=== PATIENT | male | born 1970 | race Caucasian/White ===

== ENCOUNTER 2022-06-02 13:49 | Outpatient (CLI) | payer OTHER, SELFPAY ==
[2022-06-02 18:48] LABS: Basophils Absolute Auto 0.1 K/mm3 (0.0-0.1); Basophils Percent Auto 0.8 % (0.2-1.2); Eosinophils Absolute Auto 0.2 K/mm3 (0-0.3); Eosinophils Percent Auto 1.9 % (0-4.4); Hematocrit 43.4 % (42.0-52.0); Hemoglobin 14.5 g/dL (14.0-18.0); Immature Granulocyte Absolute 0.03 K/mm3 (0.00-0.031); Immature Granulocyte Percent A 0.3 % (0-0.5); Lymphocytes Absolute Auto 3.02 K/mm3 (0.9-3.2); Mean Corpuscular HGB Conc 33.4 g/dl (32-36); Mean Corpuscular Volume 89.7 fl (80-100); Mean Platelet Volume 10.4 fl (7.4-10.4); Monocytes Absolute Auto 0.6 K/mm3 (0.1-0.6); Monocytes Percent Auto 7.2 % (2.6-8.5); Neutrophils Percent Auto 55.8 % (45.5-73.1); Platelet Count Result 209 k/mm3 (150-375); Red Blood Count 4.84 M/mm3 (4.6-6.20); Red Cell Distribution Width 12.9 % (11.5-14.5); White Blood Count 8.9 K/mm3 (4.5-10.0)
[2022-06-02 19:51] LABS: Alanine Aminotransferase 52 U/L (6-50); Albumin Level 4.9 g/dL (3.5-5.1); Alkaline Phosphatase 63 U/L (38-126); Anion Gap 8 mmol/L (8-16); Aspartate Amino Transferase 57 U/L (17-59); Bilirubin,Total 1.1 mg/dL (0.2-1.3); Blood Urea Nitrogen 15 mg/dL (9-20); Calcium 9.1 mg/dL (8.4-10.2); Carbon Dioxide 25 mmol/L (22-30); Chloride 106 mmol/L (98-107); Cholesterol 261 mg/dL (0-200); Estimated Glomerular Filt Rate > 60; Glucose 96 mg/dL (65-110); HDL Direct 36 mg/dL; Sodium 139 mmol/L (137-145); Triglycerides 132 mg/dL (<150)
[2022-06-02 20:04] LABS: LDL Cholesterol Direct 180 mg/dL
[2022-06-02 20:30] LABS: Vitamin D 25 Hydroxy 26.7 ng/mL
== END 2022-06-02 13:50 | disposition home or self-care (01) ==
LOC: ANHGOSHLAB 13:51
PROVIDERS: PCP Family Medicine; Visit Provider Family Medicine
DX: E55.9 Vitamin D deficiency, unspecified (principal); Z00.00 Encounter for general adult medical examination without abnormal findings; I10 Essential (primary) hypertension; Z13.220 Encounter for screening for lipoid disorders; E53.8 Deficiency of other specified B group vitamins; R20.0 Anesthesia of skin; R20.2 Paresthesia of skin
CPT/HCPCS: 36415; 80053; 80061; 82306; 82607; 84443; 85025

== ENCOUNTER 2022-07-28 00:44 | Day surgery (SDC) | payer OTHER, SELFPAY ==
[2022-07-12 14:09] VITALS: BMI 43.3
[2022-07-28 09:30] VITALS: BP 156/91; PULSE 94; RESP 20; TEMP 36.2; O2SAT 99; BMI 42.5
[2022-07-28] MEDS: LACTATED RINGERS 1,000 ML 150 ML IV CONT (09:30)
--- NOTE | 2022-07-28 10:01 | PM.HPGS ---
History of Present Illness History of Present Illness Consent: Risks, benefits, and alternatives have been discussed and questions answered. Patient agrees to proceed with procedure. Chief complaint: neoplasm screening Narrative: Xavier Mckay is a 52 year old male here for first screening colonoscopy Review of Systems Constitutional: Constitutional: Denies headache(s) and Denies weakness Eyes: Eyes: Denies blurry vision ENT: Reports Normal hearing present, Denies headache(s) and Denies neck pain Cardiovascular: Cardiovascular: Denies chest pain and Denies dyspnea Respiratory: Respiratory: Denies dyspnea Gastrointestinal: Gastrointestinal: Reports no additional gastrointestinal complaints Genitourinary: Genitourinary: Denies dysuria Musculoskeletal: Musculoskeletal: Denies neck pain Integumentary/Breasts: Skin/Breast: Denies dry skin Neurologic: Reports Normal hearing present, Denies headache(s) and Denies weakness Psychiatric: Psychiatric: Denies anxiety Endocrine: Endocrine: Denies change in body appearance Hematologic/Lymphatic: Hematologic/Lymphatic: Denies easy bleeding Allergic/Immunologic: Allergic/Immunologic: Denies urticaria PMF Past Medical History Medical History (Updated 07/28/22 @ 10:02 by Yfn Amin MD) Actinic keratosis Colon cancer screening Dyslipidemia Essential (primary) hypertension Kidney stones Vitamin B12 deficiency Vitamin D deficiency Surgical History Surgical History H/O thumb surgery (~1986) left thumb due trauma. Social History Social History Smoking status: Never smoker Alcohol intake: current Substance use: never Substance use type: does not use Lack of Transportation: No Lack of Food: Never True Current Housing: I Have Housing Concerned About Future Housing: No Difficulty Paying Gas/Electric Bills: No Difficulty Paying for Meds: No Currently Unemployed: No Education: Bachelor's Degree Difficulty w/ Childcare or Family Care: No Living arrangements: with family Additional living arrangements comments: Occupation/Education: occupation Additional occupation/education comments: [employer] Gender identity (if verbalized by the patient): Male Sexual Orientation (if Verbalized by the Patient): Straight or Heterosexual Spiritual care concerns: No Meds Home Medications and Allergies Home Medications Medication Instructions Recorded Confirmed Type amlodipine 10 mg tablet 10 mg PO DAILY #90 tabs 05/19/22 07/12/22 Rx atorvastatin 20 mg tablet (Lipitor) 20 mg PO QHS #90 tabs 06/03/22 07/12/22 Rx cholecalciferol (vitamin D3) 50 50 mcg PO DAILY #90 tabs 06/03/22 07/12/22 Rx mcg (2,000 unit) tablet cyanocobalamin (vitamin B-12) 1,000 mcg sublingual DAILY #90 tabs 06/03/22 07/12/22 Rx 1,000 mcg sublingual tablet hydrochlorothiazide 25 mg tablet 25 mg PO DAILY #90 tabs 06/03/22 07/12/22 Rx metoprolol succinate 25 mg 25 mg PO DAILY #90 tabs 06/24/22 07/12/22 Rx tablet,extended release 24 hr Allergies Allergy/AdvReac Type Severity Reaction Status Date / Time No Known Allergies Allergy Verified 07/28/22 09:29 Vital Signs Vital Signs - 24 hr 07/28/22 09:30 Temperature 97.2 F L Pulse Rate 94 Respiratory Rate 20 Blood Pressure 156/91 H Pulse Oximetry 99 Oxygen Delivery Room Air Exam Const: General: comfortable and no acute distress HENMT: Face/Nose/Sinus: Normal nares present Eyes: General: appearance normal, both eyes and all related structures Neck: Neck: no JVD Resp: Auscultation: clear to auscultation bilaterally Cardio: Rate: regular rate Rhythm: regular rhythm GI: Inspection: non-distended GI Palp: Yes Soft to palpation Skin: General skin exam: normal color Neuro: General: gait normal Speech: normal speech Extrem: General: normal t
--- NOTE | 2022-07-28 10:08 | WPDANESEPPF ---
Anes - Initial Pre Proc Eval Procedure: Operation Date: 07/28/22 10:30 Proposed Procedures p Screening Colonoscopy - Yfn Amin MD Date/Time: 07/28/22 10:08 Surgeon: Yfn Amin MD Pre Op Diagnosis: neoplasm screening Patient Data Age: 52 Gender: M Height: 1.73 m Weight: 127.1 kg Last Vital Signs Temp 97.2 F L 07/28/22 09:30 Pulse 94 07/28/22 09:30 Resp 20 07/28/22 09:30 BP 156/91 H 07/28/22 09:30 Pulse Ox 99 07/28/22 09:30 O2 Del Method Room Air 07/28/22 09:30 Allergies Allergy/AdvReac Type Severity Reaction Status Date / Time No Known Allergies Allergy Verified 07/28/22 09:29 Home Medications Medication Instructions Recorded Confirmed Type amlodipine 10 mg tablet 10 mg PO DAILY #90 tabs 05/19/22 07/12/22 Rx atorvastatin 20 mg tablet (Lipitor) 20 mg PO QHS #90 tabs 06/03/22 07/12/22 Rx cholecalciferol (vitamin D3) 50 50 mcg PO DAILY #90 tabs 06/03/22 07/12/22 Rx mcg (2,000 unit) tablet cyanocobalamin (vitamin B-12) 1,000 mcg sublingual DAILY #90 tabs 06/03/22 07/12/22 Rx 1,000 mcg sublingual tablet hydrochlorothiazide 25 mg tablet 25 mg PO DAILY #90 tabs 06/03/22 07/12/22 Rx metoprolol succinate 25 mg 25 mg PO DAILY #90 tabs 06/24/22 07/12/22 Rx tablet,extended release 24 hr Patient hx anesthesia problems: none Family hx anesthesia problems: none Results Review: All pre-operative results and documents have been reviewed as part of the pre-operative evaluation. [facility] Past Medical History Medical History (Updated 07/28/22 @ 10:02 by Yfn Amin MD) Actinic keratosis Colon cancer screening Dyslipidemia Essential (primary) hypertension Kidney stones Vitamin B12 deficiency Vitamin D deficiency Surgical History Surgical History H/O thumb surgery (~1986) left thumb due trauma. Social History Social History Smoking status: Never smoker Alcohol intake: current Substance use: never Substance use type: does not use Lack of Transportation: No Lack of Food: Never True Current Housing: I Have Housing Concerned About Future Housing: No Difficulty Paying Gas/Electric Bills: No Difficulty Paying for Meds: No Currently Unemployed: No Education: Bachelor's Degree Difficulty w/ Childcare or Family Care: No Living arrangements: with family Additional living arrangements comments: Occupation/Education: occupation Additional occupation/education comments: [employer] Gender identity (if verbalized by the patient): Male Sexual Orientation (if Verbalized by the Patient): Straight or Heterosexual Spiritual care concerns: No Anes - Eval Final PreProcedure Day of Procedure 07/28/22 10:08 Patient weight: morbidly obese Heart: regular rate and rhythm Lungs: clear to auscultation Airway: Mallampati scale class III Neurological: alert and oriented Last oral intake: >/= 8 hours ASA classification: III Emergent: no Anesthetic plan: proceed Anesthesia type and monitoring: general GIVS and standard monitoring Results Review: All pre-operative results and documents have been reviewed as part of the pre-operative evaluation. Informed Consent: The patient's anesthetic plan and its attendant risks and benefits were discussed with the patient/family/POA. Questions were solicited and answers provided to the satisfaction of the patient/family/POA.
[2022-07-28 10:22] VITALS: BP 119/79; PULSE 86; RESP 22; O2SAT 97
[2022-07-28 10:32] VITALS: BP 125/87; PULSE 88; RESP 21; O2SAT 97
[2022-07-28 10:42] VITALS: BP 131/84; PULSE 71; RESP 21; O2SAT 99
== END 2022-07-28 10:52 | disposition home or self-care (01) ==
PROVIDERS: PCP Family Medicine; Visit Provider Internal Medicine Gastroenterology
PROC: 0DJD8ZZ Inspection of Lower Intestinal Tract, Via Natural or Artificial Opening Endoscopic (ICD-10-PCS; CPT 45378; principal; 2022-07-28 10:30)
DX: Z12.11 Encounter for screening for malignant neoplasm of colon (principal); K64.8 Other hemorrhoids; I10 Essential (primary) hypertension; E78.5 Hyperlipidemia, unspecified; E55.9 Vitamin D deficiency, unspecified; E53.8 Deficiency of other specified B group vitamins; E66.01 Morbid (severe) obesity due to excess calories; Z68.41 Body mass index [BMI] 40.0-44.9, adult
CPT/HCPCS: 45378; J2704; J7120

== ENCOUNTER 2022-08-17 08:30 | Outpatient (CLI) | payer OTHER, SELFPAY ==
--- NOTE | 2022-08-17 11:00 | NEURO_ITS ---
Impression: # Complains of increasing nocturnal paresthesia and pain in hands. # Severe bilateral Carpal Tunnel Syndrome. # No ulnar neuropathy. # Abnormal needle/EMG exam. Motor Nerve Conduction Upper Extremities Median Nerve Conduction Velocity (m/sec) Terminal Latency (msec) Response Voltage(mV) Elbow-Wrist Wrist Elbow Wrist Right 54 11.9 2 3 Left 60 11.2 1 1 Ulnar Nerve Conduction Velocity (m/sec) Terminal Latency (msec) Response Voltage(mV) Above Elbow Below Elbow Wrist Above Elbow Below Elbow Wrist Right 54 2.3 6 7 Left 57 2.7 7 8 F-Wave Latency Median (ms) Ulnar (ms) Right 30.0 28.3 Left 30.0 28.2 Sensory Nerve Conduction Upper Extremities Median Nerve Stimulation Terminal Latency (msec) Wrist/Digit Response Voltage (uV) Wrist Right NR/NR NR/NR Left NR/NR NR/NR Ulnar Nerve Stimulation Terminal Latency (msec) Wrist/Digit Response Voltage (uV) Wrist Right 2.4 22 Left 2.5 54 Radial Nerve Terminal Latency (msec) Response Voltage(mV) Right 2.0 23 Left 2.5 17 Left Right Muscles Examined Fibrillation Fasciculation Scarcity Voltage Duration Left Right Left Right Left Right Left Right Left Right Deltoid Biceps X X Brachioradialis Triceps X X Pronator Teres Reduced Reduced >12ms >12ms X X Ext Indicis X X Ext Digitorum X X Abd Poll Brev Reduced Reduced >12ms >12ms X X 1st Dorsal Interosseus Paraspinals MTDD
== END 2022-08-17 08:31 | disposition home or self-care (01) ==
LOC: ANHNEURO 08:32
PROVIDERS: PCP Family Medicine; Visit Provider Family Medicine
DX: R20.0 Anesthesia of skin (principal); G56.03 Carpal tunnel syndrome, bilateral upper limbs
CPT/HCPCS: 95886; 95911

== ENCOUNTER 2022-09-18 14:37 | Emergency (ER) | payer OTHER, SELFPAY ==
--- NOTE | 2022-09-18 14:40 | ED.BACK ---
HPI - Back Pain/Injury General Chief Complaint: Urogenital-Male Stated Complaint: kidney pain Source: patient and RN notes reviewed History of Present Illness HPI Narrative: 52 yo M presents to urgent care with at side. Pt states he suddenly came down with left mid back pain yesterday afternoon. Pt denies any injury to explain it. Pt denies pain radiating anywhere, including flank, abdomen, buttocks, or leg. Denies any hematuria, dysuria, vomiting, fevers, or chills. Pt does report some nausea. Reports a hx of kidney stones. Pt took (2) Advil this am without relief. Related Data Allergies Allergy/AdvReac Type Severity Reaction Status Date / Time No Known Allergies Allergy Verified 09/18/22 14:45 Review of Systems Review of Systems: Pertinent positives and pertinent negatives per HPI. [facility] Past Medical History Medical History (Updated 09/18/22 @ 15:12 by Sri Nielson, REGINO) Actinic keratosis Colon cancer screening Dyslipidemia Essential (primary) hypertension Kidney stones Vitamin B12 deficiency Vitamin D deficiency Surgical History Surgical History H/O thumb surgery (~1986) left thumb due trauma. Social History Social History Smoking status: Never smoker Alcohol intake: current Substance use: never Substance use type: does not use Lack of Transportation: No Lack of Food: Never True Current Housing: I Have Housing Concerned About Future Housing: No Difficulty Paying Gas/Electric Bills: No Difficulty Paying for Meds: No Currently Unemployed: No Education: Bachelor's Degree Difficulty w/ Childcare or Family Care: No Living arrangements: with family Additional living arrangements comments: Occupation/Education: occupation Additional occupation/education comments: [employer] Gender identity (if verbalized by the patient): Male Sexual Orientation (if Verbalized by the Patient): Straight or Heterosexual Spiritual care concerns: No Comments At the time of my signature, I reviewed and agree with the nursing past medical, surgical, social, and family history. There is no relevant family history pertinent to the patient complaint. Exam Narrative: GENERAL: This is a well-nourished, well-developed patient, in no apparent distress. HEAD: normocephalic, atraumatic. EYES: PERRL. Sclera clear/white. Vision is grossly intact. EARS: External ears normal, auditory canals clear and without drainage, TMs normal without perforation. Hearing grossly intact. NOSE: External nose normal with no obvious nasal discharge, nares without redness, no rhinorrhea. THROAT: Mucous membranes moist, posterior pharynx clear. NECK: Neck supple, non-tender without lymphadenopathy, masses or thyromegaly. CARDIOVASCULAR: Regular rate RESPIRATORY: No respiratory distress. GASTROINTESTINAL: Abdomen soft, non-tender, nondistended. Bowel sounds are active. No hepato-splenomegaly, or palpable masses. No guarding. SKIN: warm, intact with no suspicious lesions or rash, good texture and turgor. NEURO: awake, alert, and oriented to person, place and time. There were no obvious focal neurologic abnormalities. EXTREMITIES: No clubbing, cyanosis, or edema. No joint tenderness, effusion, or edema noted. BACK: Tenderness to left mid back. It appears pt's pain increased with any movement by pt. Course Course Level of Care: Express Care Visit Vital Signs Vital signs: Vital Signs Temperature 98.4 F 09/18/22 14:47 Pulse Rate 87 09/18/22 14:47 Respiratory Rate 16 09/18/22 14:47 Blood Pressure 142/95 H 09/18/22 14:47 Pulse Oximetry 98 09/18/22 14:47 Temperature 98.4 F 09/18/22 14:47 Pulse Rate 87 09/18/22 14:47 Respiratory Rate 16 09/18/22 14:47 Blood Pressure 142/95 H 09/18/22 14:47 Pulse Oximetry 98 09/18/22 14:47 reviewed MDM - Back Pain/Injury
[2022-09-18 14:47] VITALS: BP 142/95; PULSE 87; RESP 16; TEMP 36.9; O2SAT 98
[2022-09-18] MEDS: KETOROLAC 30 MG/ML VIAL (*BKC) IM (15:15)
== END 2022-09-18 15:45 | disposition home or self-care (01) ==
PROVIDERS: Emergency Provider Nurse Practitioner Family; PCP Family Medicine
DX: M54.6 Pain in thoracic spine (principal); R31.9 Hematuria, unspecified; E78.5 Hyperlipidemia, unspecified; I10 Essential (primary) hypertension; E55.9 Vitamin D deficiency, unspecified; E53.8 Deficiency of other specified B group vitamins
CPT/HCPCS: 81003; 96372; 99213; G0463; J1885

== ENCOUNTER 2022-09-20 15:48 | Outpatient (CLI) | payer OTHER, SELFPAY ==
--- NOTE | ~2022-09-20 | CT_ITS ---
EXAMINATION: CT abdomen pelvis wo con DATE: 09/20/2022 16:16 INDICATION: Left flank pain TECHNIQUE: Computed tomography (CT) of the abdomen and pelvis was performed without intravenous contr ast. The dose-length product (DLP) was 1758.98 mGy-cm. Automated exposure control and iterative recon struction technique were employed. COMPARISON: None FINDINGS: The lung bases are clear. The heart size is normal. The liver, spleen, pancreas, gallbladde r, and adrenal glands are normal. There is a 3 mm nonobstructing stone of the left kidney lower pole. There are two nonobstructing stones of the right kidney measuring 2 mm. No stones are present in the ureters or bladder. There is no hydronephrosis or hydroureter. No pathologically enlarged abdominal or pelvic lymph nodes are identified. No free intraperitoneal gas or evidence of bowel obstruction. T here is severe lumbar spondylosis at L5-S1. IMPRESSION: 1. No CT correlate for the patient's symptoms. 2. Bilateral nonobstructing nephrolithiasis. Reviewed, dictated and finalized at location F.
--- NOTE | ~2022-09-20 | XR_ITS ---
EXAMINATION: XR abdomen/kub 1V INDICATION: Left flank pain TECHNIQUE: Supine views of the abdomen were obtained on 2 radiographs. COMPARISON: CT from today FINDINGS: There is a 4 mm nonobstructing stone of the left kidney lower pole. Right-sided kidney ston es identified on the comparison CT are not definitely seen. The bowel gas pattern is normal. IMPRESSION: 1. Left nephrolithiasis. Reviewed, dictated and finalized at location F. IMPRESSION: 1. Left nephrolithiasis.
== END 2022-09-20 15:49 | disposition home or self-care (01) ==
LOC: ANHIMG 15:55
PROVIDERS: PCP Family Medicine; Visit Provider Urology
DX: R10.9 Unspecified abdominal pain (principal); N20.0 Calculus of kidney
CPT/HCPCS: 74018; 74176

== ENCOUNTER 2022-10-14 10:14 | Outpatient (CLI) | payer OTHER, SELFPAY ==
[2022-10-14 13:07] LABS: Basophils Percent Auto 0.3 % (0.2-1.2); Eosinophils Absolute Auto 0.3 K/mm3 (0-0.3); Eosinophils Percent Auto 2.8 % (0-4.4); Hematocrit 40.9 % (42.0-52.0); Hemoglobin 13.8 g/dL (14.0-18.0); Immature Granulocyte Absolute 0.05 K/mm3 (0.00-0.031); Immature Granulocyte Percent A 0.5 % (0-0.5); Lymphocytes Absolute Auto 2.75 K/mm3 (0.9-3.2); Lymphocytes Percent Auto 27.6 % (18.3-44.2); Mean Corpuscular HGB Conc 33.7 g/dl (32-36); Mean Corpuscular Hemoglobin 29.8 pg (26-34); Mean Corpuscular Volume 88.3 fl (80-100); Mean Platelet Volume 10.5 fl (7.4-10.4); Monocytes Absolute Auto 0.9 K/mm3 (0.1-0.6); Monocytes Percent Auto 9.4 % (2.6-8.5); Neutrophils Absolute Auto 5.9 K/mm3 (1.3-6.7); Neutrophils Percent Auto 59.4 % (45.5-73.1); Platelet Count Result 243 k/mm3 (150-375); Red Blood Count 4.63 M/mm3 (4.6-6.20); Red Cell Distribution Width 13.1 % (11.5-14.5)
[2022-10-14 13:16] LABS: Alanine Aminotransferase 29 U/L (6-50); Albumin Level 4.4 g/dL (3.5-5.1); Alkaline Phosphatase 72 U/L (38-126); Anion Gap 9 mmol/L (8-16); Aspartate Amino Transferase 27 U/L (17-59); Bilirubin,Total 0.6 mg/dL (0.2-1.3); Blood Urea Nitrogen 16 mg/dL (9-20); Calcium 8.7 mg/dL (8.4-10.2); Carbon Dioxide 25 mmol/L (22-30); Chloride 105 mmol/L (98-107); Cholesterol 133 mg/dL (0-200); Estimated Glomerular Filt Rate > 60; Glucose 109 mg/dL (65-110); HDL Direct 33 mg/dL; Potassium 3.7 mmol/L (3.4-5.0); Sodium 139 mmol/L (137-145); Triglycerides 105 mg/dL (<150)
[2022-10-14 13:28] LABS: LDL Cholesterol Direct 77 mg/dL
== END 2022-10-14 10:15 | disposition home or self-care (01) ==
LOC: ANHGOSHLAB 10:15
PROVIDERS: PCP Family Medicine; Visit Provider Family Medicine
DX: E78.5 Hyperlipidemia, unspecified (principal); D69.2 Other nonthrombocytopenic purpura; I10 Essential (primary) hypertension; Z79.899 Other long term (current) drug therapy
CPT/HCPCS: 36415; 80053; 80061; 85025

== ENCOUNTER 2022-11-09 15:30 | Outpatient (RCR) | payer OTHER, SELFPAY ==
--- NOTE | 2022-10-12 17:05 | PTOPEVAL1 ---
Assessment and note entered by Sena Perdomo, PT, DPT Evaluation Information Assessment Status Evaluation Diagnosis back pain Onset 2-3 weeks Subjective Information Pt states he went to urgent care a few weeks ago thinking he had a kidney stone. He said at that time every step he took was excruciating. A few days later they confirmed that he had kidney stones but without a blockage so shoulder not be the cause of his pain. He states the following day he was on heavy pain meds and a muscle relaxer and took a few days to recover he states the worst of his pain started to go away. He states now he is okay most of the day and once he gets home and starts to relax his back will start to tighten up. He states the same day as his back pain he also had L heel pain. Reported Pain Level Pain Score 2: Self Report Assessment PT Clinical Summary Xavier presents to therapy today for his initial evaluation with a diagnosis of thoracic spine pain . Today he demonstrates decreased lateral flexion and decreased rotation of his back but is limited by pain and mobility. He demonstrates tenderness and increased tissue density throughout his paraspinal and quadratus lumborum. Skilled physical therapy services are indicated to improve spinal mobility, to manage pain, to educate on body mechanics, and to progress towards a return to baseline function. Plan of Care Interventions Electrical Stimulation,Gait Training,Hot Pack/Cold Pack,Manual Therapy,Neuro Re-education,Patient/ Caregiver Educati,Therapeutic Activities, Therapeutic Exercise PT Services Indicated Yes Treatment Frequency and 2x/wk for 4 wks Duration These treatments will address the objective and functional deficits as defined above. The patient will be advanced safely and appropriately in order for the patient to progress towards his/her prior level of function. Additional exercises will be introduced and as well as a comprehensive home exercise program upon discharge, if needed, ?to ensure carryover of functional gains achieved in the clinic. This treatment plan has been reviewed and agreement upon by the patient.
--- NOTE | 2022-11-09 16:19 | PTOPDC ---
Assessment and note entered by Sena Perdomo, PT, DPT Evaluation Information Assessment Status discharge Diagnosis back pain Onset 2-3 weeks Subjective Information Pt states his back feels like it is getting better , much better. He declines any sharp pains and minimal lower back pain. He states he did some yard work on the weekend and he got some upper/mid back muscle spasms that went away and then tightness after that. He reports his muscle spasms have decreased significantly. He states he has become way more awareness of his body mechanics and how he does his work. Pt reports 115% in his symptoms, he states he feels better than before his injury. Reported Pain Level Pain Score 0: Self Report Assessment PT Clinical Summary Xavier presents to therapy today for his progress report following 7 visits of skilled therapy to treat his diagnosis of back pain. Today he demonstrates lumbar and thoracic ROM with is WNL and pain free. He demonstrates great LE strength, good body awareness, and improved functional mobility. He has met all of his therapy goals at this time and no longer requires skilled services. He will be discharged at this time. Plan of Care PT Services Indicated No
== END 2022-11-10 13:28 | disposition home or self-care (01) ==
LOC: ANHGOSHPT 15:30
PROVIDERS: PCP Family Medicine; Visit Provider Nurse Practitioner
DX: M54.6 Pain in thoracic spine (principal)
CPT/HCPCS: 97014; 97110; 97140; 97161; 97530; G0283

== ENCOUNTER 2023-01-15 11:15 | Emergency (ER) | payer OTHER, SELFPAY ==
[2023-01-15 11:22] VITALS: BP 124/89; PULSE 82; RESP 16; TEMP 36.8; O2SAT 99
--- NOTE | 2023-01-15 11:39 | ED.SKABFB ---
HPI - Skin/Abscess/Foreign Bdy General Chief complaint: Skin/Abscess/Foreign Body Stated complaint: rash Time Seen by Provider: 01/15/23 11:34 Source: patient and RN notes reviewed Mode of arrival: ambulatory Limitations: no limitations History of Present Illness HPI narrative: 52 year old male presents with concern for race red itchy rash. He reports rash started on his right forearm yesterday. Reports that spread up his arm and now to his scalp. He reports his eyes discharging the feel itchy. He had carpal tunnel surgery on his right wrist early this week. He had had a cotton dressing and an Vijay wrap up to his mid wrist. He is not taking any antibiotics currently. He did get prescribed pain medication which he has taken only a few tablets of. He denies any new lotions, soaps, personal care products. He denies history of similar rash in the past. Denies swollen lips, swollen tongue, trouble breathing. complaint: rash Related Data Allergies Allergy/AdvReac Type Severity Reaction Status Date / Time No Known Allergies Allergy Verified 01/15/23 11:32 Review of Systems Review of Systems: CONSTITUTIONAL: Denies malaise, chills, sweats, or fever. EYES: Denies redness, or discharge. ENT: Denies rhinorrhea, congestion, swollen lips, swollen tongue CARDIOVASCULAR: Denies chest pain, palpitations, or edema. RESPIRATORY: Denies cough or dyspnea. GASTROINTESTINAL: Denies abdominal pain, nausea, vomiting SKIN: Reports itchy rash on his right arm, scalp, face MUSCULOSKELETAL: Denies joint pain or myalgia. NEUROLOGIC: Denies headache. All systems reviewed & are unremarkable except as noted in HPI and below PMFSH Past Medical History Medical History Actinic keratosis Colon cancer screening Dyslipidemia Essential (primary) hypertension Kidney stones Vitamin B12 deficiency Vitamin D deficiency Surgical History Surgical History H/O thumb surgery (~1986) left thumb due trauma. Social History Social History Smoking status: Never smoker Alcohol intake: current Substance use: never Substance use type: does not use Lack of Transportation: No Lack of Food: Never True Current Housing: I Have Housing Concerned About Future Housing: No Difficulty Paying Gas/Electric Bills: No Difficulty Paying for Meds: No Currently Unemployed: No Education: Bachelor's Degree Difficulty w/ Childcare or Family Care: No Living arrangements: with family Additional living arrangements comments: Occupation/Education: occupation Additional occupation/education comments: [employer] Gender identity (if verbalized by the patient): Male Sexual Orientation (if Verbalized by the Patient): Straight or Heterosexual Spiritual care concerns: No Comments At time of signature, agree with nursing past medical, surgical, social and family history. There is no relevant family history pertinent to the presenting complaint Exam Narrative: GENERAL: Well-appearing, well-nourished, and in no acute distress. HEAD: Normocephalic, atraumatic. EYES: PERRLA, conjunctivae clear, and EOMI. ENT: Mucous membranes moist. Oropharynx without edema, erythema or lesions. NECK: Supple. No lymphadenopathy CHEST: Clear to auscultation. No respiratory distress. HEART: Regular rate and rhythm. SKIN: Warm, dry. Irregular erythematous papular rash noted on the right forearm, above the elbow, scalp, mild erythema noted around the eyes NEURO: Alert and oriented x3. PSYCH: Normal mood and affect Course Course Emergency Course: Patient is aware of diagnosis, understands and agrees to treatment plan. Anticipatory guidance given. Patient agrees to follow-up as directed and is aware of reasons to seek care at the emergency department. Portions of this record may hav
== END 2023-01-15 11:45 | disposition home or self-care (01) ==
PROVIDERS: Emergency Provider Nurse Practitioner; PCP Family Medicine
DX: L30.9 Dermatitis, unspecified (principal); E78.5 Hyperlipidemia, unspecified; I10 Essential (primary) hypertension; E53.8 Deficiency of other specified B group vitamins; E55.9 Vitamin D deficiency, unspecified
CPT/HCPCS: 99213; G0463

== ENCOUNTER 2023-06-30 08:48 | Outpatient (CLI) | payer OTHER, SELFPAY ==
[2023-06-30 18:47] LABS: Basophils Absolute Auto 0.1 K/mm3 (0.0-0.1); Basophils Percent Auto 0.9 % (0.2-1.2); Eosinophils Absolute Auto 0.3 K/mm3 (0-0.3); Eosinophils Percent Auto 3.8 % (0-4.4); Hematocrit 46.1 % (42.0-52.0); Hemoglobin 14.6 g/dL (14.0-18.0); Immature Granulocyte Absolute 0.05 K/mm3 (0.00-0.031); Immature Granulocyte Percent A 0.7 % (0-0.5); Lymphocytes Absolute Auto 2.63 K/mm3 (0.9-3.2); Lymphocytes Percent Auto 34.2 % (18.3-44.2); Mean Corpuscular HGB Conc 31.7 g/dl (32-36); Mean Corpuscular Hemoglobin 28.9 pg (26-34); Mean Corpuscular Volume 91.1 fl (80-100); Mean Platelet Volume 10.5 fl (7.4-10.4); Monocytes Absolute Auto 0.5 K/mm3 (0.1-0.6); Monocytes Percent Auto 6.4 % (2.6-8.5); Neutrophils Absolute Auto 4.2 K/mm3 (1.3-6.7); Platelet Count Result 226 k/mm3 (150-375); Red Blood Count 5.06 M/mm3 (4.6-6.20); Red Cell Distribution Width 14.1 % (11.5-14.5); White Blood Count 7.7 K/mm3 (4.5-10.0)
[2023-06-30 20:27] LABS: Alanine Aminotransferase 43 U/L (6-50); Albumin Level 4.5 g/dL (3.5-5.1); Alkaline Phosphatase 72 U/L (38-126); Anion Gap 12 mmol/L (8-16); Aspartate Amino Transferase 40 U/L (17-59); Bilirubin,Total 0.9 mg/dL (0.2-1.3); Blood Urea Nitrogen 12 mg/dL (9-20); Calcium 9.2 mg/dL (8.4-10.2); Carbon Dioxide 27 mmol/L (22-30); Chloride 103 mmol/L (98-107); Cholesterol 167 mg/dL (0-200); Estimated Glomerular Filt Rate > 60; Glucose 93 mg/dL (65-110); HDL Direct 37 mg/dL; Potassium 3.9 mmol/L (3.4-5.0); Sodium 142 mmol/L (137-145); Triglycerides 101 mg/dL (<150)
[2023-06-30 20:38] LABS: LDL Cholesterol Direct 106 mg/dL
[2023-06-30 20:56] LABS: Prostate Specific Antigen 1.4 ng/mL (< OR = 4.0)
[2023-06-30 21:21] LABS: Vitamin B12 > 1000.0 pg/mL (239-931)
[2023-06-30 21:55] LABS: Vitamin D 25 Hydroxy 41.3 ng/mL
[2023-06-30 22:17] LABS: Hemoglobin A1C 5.6 % (<5.7)
== END 2023-06-30 08:49 | disposition home or self-care (01) ==
LOC: ANHGOSHLAB 08:49
PROVIDERS: PCP Family Medicine; Visit Provider Family Medicine
DX: Z00.00 Encounter for general adult medical examination without abnormal findings (principal); E78.5 Hyperlipidemia, unspecified; E53.8 Deficiency of other specified B group vitamins; R73.9 Hyperglycemia, unspecified; E55.9 Vitamin D deficiency, unspecified; I10 Essential (primary) hypertension; Z12.5 Encounter for screening for malignant neoplasm of prostate; Z79.899 Other long term (current) drug therapy
CPT/HCPCS: 36415; 80053; 80061; 82306; 82607; 83036; 84153; 84443; 85025; G0103

== ENCOUNTER 2024-07-19 08:14 | Outpatient (CLI) | payer OTHER, SELFPAY ==
[2024-07-19 18:28] LABS: Basophils Absolute Auto 0.1 K/mm3 (0.0-0.1); Basophils Percent Auto 0.8 % (0.2-1.2); Eosinophils Absolute Auto 0.3 K/mm3 (0-0.3); Eosinophils Percent Auto 3.3 % (0-4.4); Hematocrit 46.7 % (42.0-52.0); Hemoglobin 15.5 g/dL (14.0-18.0); Immature Granulocyte Absolute 0.01 K/mm3 (0.00-0.031); Immature Granulocyte Percent A 0.1 % (0-0.5); Lymphocytes Absolute Auto 2.92 K/mm3 (0.9-3.2); Lymphocytes Percent Auto 38.3 % (18.3-44.2); Mean Corpuscular HGB Conc 33.2 g/dl (32-36); Mean Corpuscular Hemoglobin 30.1 pg (26-34); Mean Corpuscular Volume 90.7 fl (80-100); Mean Platelet Volume 10.7 fl (7.4-10.4); Monocytes Absolute Auto 0.7 K/mm3 (0.1-0.6); Monocytes Percent Auto 8.7 % (2.6-8.5); Neutrophils Absolute Auto 3.7 K/mm3 (1.3-6.7); Neutrophils Percent Auto 48.8 % (45.5-73.1); Platelet Count Result 228 k/mm3 (150-375); Red Blood Count 5.15 M/mm3 (4.6-6.20); White Blood Count 7.6 K/mm3 (4.5-10.0)
[2024-07-19 19:28] LABS: Sodium 138 mmol/L (137-145)
[2024-07-19 19:32] LABS: Alanine Aminotransferase 62 U/L (6-50); Albumin Level 4.5 g/dL (3.5-5.1); Alkaline Phosphatase 63 U/L (38-126); Anion Gap 9 mmol/L (4-12); Aspartate Amino Transferase 59 U/L (17-59); Bilirubin,Total 1.2 mg/dL (0.2-1.3); Blood Urea Nitrogen 14 mg/dL (9-20); Calcium 9.4 mg/dL (8.4-10.2); Carbon Dioxide 28 mmol/L (22-30); Chloride 101 mmol/L (98-107); Cholesterol 126 mg/dL (0-200); Estimated Glomerular Filt Rate > 60; Glucose 98 mg/dL (65-110); HDL Direct 31 mg/dL; Potassium 4.1 mmol/L (3.4-5.0); Triglycerides 76 mg/dL (<150)
[2024-07-19 19:40] LABS: LDL Cholesterol Direct 82 mg/dL
[2024-07-19 19:49] LABS: Hemoglobin A1C 5.5 % (<5.7)
[2024-07-19 19:55] LABS: Vitamin D 25 Hydroxy 55.2 ng/mL
[2024-07-19 20:00] LABS: Prostate Specific Antigen 1.2 ng/mL (< OR = 4.0)
[2024-07-19 20:28] LABS: Vitamin B12 > 1000.0 pg/mL (239-931)
--- OUTSIDE RECORDS SUMMARY | 2024-07-20 03:53 | XMS_ITS | Data Portability ---
Author Organization [place] [facility], Main Office Address [address] [place] [address] Care Team Providers Care Principle Software Engineer Name Role Phone MONO ARAUJO Primary Care Provider MONO ARAUJO Referring Provider [phone] Assessment Encounter Date Assessment Date Assessment LastModified by Organization Details LastModified Time 01/26/2023 01/26/2023 [age] male presents for follow-up of his right wrist postop care, and also evaluation of a separate problem with his left hand and wrist. He is status post carpal tunnel release on 01/11/2023. Overall he is doing well. He reports that his numbness and tingling symptoms have improved. He has minimal pain, rated as 2/10, he is not taking any pain medications. Overall he is satisfied with his outcome and eager to get his other side done. He has left-sided carpal tunnel as well, also causing numbness and tingling and pain at night which he has to shake out. He has previously had conservative management including activity modification, therapy, anti-inflammatorie s, and bracing. he also reports pain and locking of his middle and ring fingers, which also have not improved with anti-inflammatorie s and therapy exercises. And is wondering if that can be taken care of along with his carpal tunnel. Right wrist incision Is healing well without erythema drainage or other signs of infection. Sutures removed. He has no tenderness around the surgical site. Negative Tinel's. Sensation intact to light touch throughout all the fingers. On his left side, he has diminished sensation over the median nerve distribution. Positive Tinel's and Phalen's. He also has tenderness over the middle and ring finger pulleys. He has pain with full extension of the fingers, and he does have catching when bringing his fingers from a flexed into extended position. He is progressing well from his right carpal tunnel release. He wants to get scheduled for his left side as well. We discussed that for his trigger fingers, we could either progress with continued conservative management, performed a cortisone injection, or another option would be surgical release. Although he has not had any cortisone injections, he wants to get them taken care of definitively well he is getting surgery for his carpal tunnel. Risks, benefits, and alternatives to surgery were discussed with the patient. Risks include but are not limited to pain, stiffness, infection, bleeding, blood clot, injury to other structures including nerves or blood vessels, need for future surgery, and anesthesia risks. We discussed the goal of surgery is to improve symptoms but there is no guarantee of improvement and it is possible the patient's condition is worse after surgery. Patient agreed and would like to proceed. [email or web address] Not available 01/26/2023 21:44:30 03/09/2023 03/09/2023 53-year-old patient presents today for 1st postop follow-up for left carpal tunnel release and left middle and ring finger trigger finger release. He says he feels okay overall. He has some pain and swelling in his fingers that makes it difficult for him to make a fist. He states that the carpal tunnel incision is not causing him any discomfort. He rates his pain a 5/10. He is no longer on pain medications. He also states he is having pain in bilateral wrists. Physical exam: Incisions are clean dry and intact without any signs of infection. Sutures were removed. Tenderness around incision sites. Some swelling still in the hand and fingers. Almost able to make a complete fist. Sensation intact. Pain with palpitation over the TFCC on bilateral wrists. patient expresses discomfort with side to side moving of bilateral wrists. He is doing well overall. Healing as expected. We will order meloxicam for anti-inflammatory therapy. We will also order bilateral wrist PT to help with the discomfort that he is experiencing. We will see him back in 2 weeks to recheck incisions and check his progress. He is in agreement with this plan. Not available 03/10/2023 16:48:12 03/23/2023 03/23/2023 53-year-old male approximately 2 months status post right carpal tunnel release performed on 01/11/2023 and 3 weeks status post left carpal tunnel release with middle and ring finger trigger finger release performed on 03/01/2023. patient is doing well and has had improvement of his numbness and tingling in the bilateral fingertips. He may continue using Vaseline or lotion to help with the skin remodeling. He may use oral and topical anti-inflammatorie s to help with the residual swelling. I also recommend that he continue with desensitization exercises with different textures and temperatures. he will follow-up in 1 month for re-evaluation. [email or web address] Not available 03/24/2023 12:57:51 04/20/2023 04/20/2023 53-year-old patient presents today for postop follow-up for left carpal tunnel release and left middle and ring finger trigger finger release. At his last appointment we ordered hand therapy to help with some residual pain and swelling in the fingers and pain in bilateral wrists. Therapy is booked out very far right now so he has still not been able to start. His first appointment in in a few weeks. He is still experiencing the same symptoms since his last visit. Physical exam: Incisions are clean dry and intact without any signs of infection. No tenderness around incision sites. Some swelling still in the hand and fingers. Able to make a complete fist but does experience stiffness. Sensation intact. Pain with palpitation over the TFCC on bilateral wrists. patient expresses discomfort with side to side moving of bilateral wrists. Healing as expected. We will reorder meloxicam for anti-inflammatory therapy. We believe that going to therapy will help the pain and stiffness he is experiencing. We will see him back 4 weeks after start of therapy to check his progress. He is in agreement with this plan. Not available 04/22/2023 10:24:48 06/08/2023 06/08/2023 53-year-old patient presents today for follow-up after left carpal tunnel release and left middle and ring finger trigger finger release. At his last appointment we ordered hand therapy to help with some residual pain and swelling in the fingers and pain in bilateral wrists. He has since completed therapy and feels like it was helpful for the wrists and finger ROM. He is no longer taking the meloxicam. He presents today with a new problem of right ring finger triggering. This started a few weeks ago. Physical exam: Incisions well healed. No tenderness around incision sites. No edema. Stiffness improved since last visit. Sensation intact. Triggering noted in right ring finger. Tenderness with palpitation over A1 malgorzata. Sensation intact. Today we discussed the risks and benefits of a cortisone injection for his trigger finger. He elected to proceed with the injection today. We can see him back as needed for pain or triggering, or if any new issues arise. He is in agreement with this plan. Not available 06/08/2023 19:30:42 Plan of Treatment Reminders Order Date Submit Date Provider Last Modified By Organization Details Last Modified Time Details Appointments None recorded. Lab None recorded. Referral occupationa l therapist referral - eval and treat 2022 023 [email or web address] [facility], [address], [place], [address], 13:31:36 Procedures injection/a spiration joint/bursa (PROC) 2022 023 [email or web address] In-Office Order, Internal Use Only DO Not Attach Compendium DO Not Attach Compendium, Do Not Delete/merge, [id number] 15:26:17 Surgeries None recorded. Imaging None recorded. Medication Orders meloxicam 7.5 mg tablet [address] [facility], [address] [place], [place], [id number], 3 13:31:36 Mobic 15 mg tablet [address] [facility]81464, [address] [place], [place], [id number], 3 23:49:04 bupivacaine HCl 0.5 % (5 mg/mL) injection solution [address] [facility]71265, [address] [place], [place], [id number], 12/13/202 3 21:03:12 Kenalog 10 mg/mL suspension for injection 2022 023 [email or web address] [facility]68, [address] [place], [place], [id number], 3 21:03:12 Patient TargetsNo targets recorded. Patient InstructionsNo instructions recorded. Reason for Referral Occupational Therapist Refer [facility] for Carpal tunnel syndrome of left wrist eval and treat Referring Physician: Darlene Laboy, Orthopedic Surgery, Encounter Date: 03/09/2023 Problems Name Problem SNOMED Code Status Onset Date Resolution Date Notes Provider Name and Address Organization Details Recorded Time Pain of bilateral hands 16809309320573 109 Active 2022 KIERA Salcido null, [employer] 3 09:34:07 Carpal tunnel syndrome of right wrist 56452458292486 8 Active 2022 Xavier Bran MD [address], [address], [address], [employer] 3 10:01:13 Acquired trigger finger 5339413 Active 2022 Xavier Bran MD [address], [employer], [place], [address], [employer] 3 21:42:14 Carpal tunnel syndrome of left wrist 33670351072647 2 Active 2022 Xavier Bran MD [address], [place] [address], [place], [address], [employer] 3 21:43:12 Acquired trigger finger of right ring finger 06575577048914 8 Active 2022 Darlene Laboy NP [address], [employer], [place], [address], [employer] 3 19:33:05 Problem Notes None recorded. Procedures Surgical History Date Name Laterality Status Provider Name and Address Organization Details Recorded Time Ortho - Cortisone Injection completed Darlene Laboy NP [address], [place], [address], [facility] 06/08/2023 19:31:03 repair of tendo achilles completed KIERA Salcido [facility] 12/22/2022 09:32:31 thumb surgery completed Tia hightower [facility] 12/22/2022 09:33:12 Imaging Results None recorded. Procedure Notes None recorded. Medical Equipment None Reported. Medications Name Sig Start Date Stop Date Status Note LastModified by Organization Details LastModified Time cyclobenzap rine 10 mg tablet Take by oral route for 4 days. active Not Available Not Available No t Available atorvastati n 20 mg tablet TAKE 1 TABLET BY MOUTH EVERY DAY AT BEDTIME active Not Available Not Available No t Available hydrocodone 5 mg-acetamin ophen 325 mg tablet TAKE 1 TABLET BY MOUTH EVERY 6 HOURS active Not Available Not Available No t Available meloxicam 15 mg tablet TAKE 1 TABLET BY MOUTH EVERY DAY active Not Available Not Available No t Available ondansetron HCl 4 mg tablet TAKE 1 TABLET BY MOUTH EVERY 6 HOURS NEEDED FOR NAUSEA OR VOMITING 06/01 completed Not Available Not Available Not Available bupivacaine HCl 0.5 % (5 mg/mL) injection solution Take 1 mL by injection route. 2022 active Not Available Not Available Not Avai lable prednisone 20 mg tablet TAKE 2 TABLETS BY MOUTH DAILY FOR 5 DAYS active Not Available Not Available No t Available fluorouraci l 5 % topical cream APPLY THIN LAYER TOPICALLY TO ARMS TWICE DAILY FOR 4 WEEKS TOLERATED . MAY APPLY TO OTHER AFFECTED AREAS 2 TIMES DAILY FOR 3 WEEKS 03/07 completed Not Available Not Available Not Available triamcinolo ne acetonide 0.1 % topical cream active Not Available Not Available Not Available ketorolac 10 mg tablet TAKE 1 TABLET BY MOUTH EVERY 8 HOURS FOR 5 DAYS NEEDED FOR PAIN active Not Available Not Available No t Available meloxicam 7.5 mg tablet TAKE 1 TABLET BY MOUTH EVERY DAY active Not Available Not Available No t Available Kenalog 10 mg/mL suspension for injection Take 1 mL by injection route. 2022 active [facility]: 0003- 0494- 20 Not Available Not Available Not Available amlodipine 10 mg tablet TAKE 1 TABLET BY MOUTH DAILY active Not Available Not Available No t Available gabapentin 300 mg capsule TAKE 1 CAPSULE BY MOUTH DAILY active Not Available Not Available No t Available hydrochloro thiazide 25 mg tablet TAKE 1 TABLET BY MOUTH DAILY active Not Available Not Available No t Available metoprolol succinate ER 25 mg tablet,exte nded release 24 hr TAKE 1 TABLET BY MOUTH DAILY active Not Available Not Available No t Available Vitals Date Recorded Body height Body mass index (BMI) Body weight Provider Name and Address Organization Details Last Updated DateTime 01/26/2023 172.72 cm 43.3 kg/m2 568816.83 g Sri Bernal, JUSTINE L [facility] 01/26/2023 14:49:27 Date Recorded Body height Body mass index (BMI) Body weight Provider Name and Address Organization Details Last Updated DateTime 03/09/2023 172.72 cm 43.3 kg/m2 447753.83 g KIERA Salcido [place] [employer] [facility] 03/09/2023 11:18:08 Date Recorded Body height Body mass index (BMI) Body weight Provider Name and Address Organization Details Last Updated DateTime 03/23/2023 172.72 cm 43.3 kg/m2 112566.83 KIERA Bui [email or web address] [facility] 03/23/2023 15:17:43 Date Recorded Body height Body mass index (BMI) Body weight Provider Name and Address Organization Details Last Updated DateTime 04/20/2023 172.72 cm 43.3 kg/m2 217763.83 g Sri Bernal, ATC L [place] [employer] [facility] [employer] 04/20/2023 15:05:34 Date Recorded Body height Body mass index (BMI) Body weight Provider Name and Address Organization Details Last Updated DateTime 06/08/2023 172.72 cm 44.1 kg/m2 317790.79 g Jeana Hairston CNA [place] [employer] [facility] 06/08/2023 15:06:44 Social History Question Answer Notes LastModified by Organizat ion Details LastModified Time Tobacco Smoking Status Unknown If Ever Smoked KIERA Salcido [facility] 12/22/2022 09:32:07 What Is Your Level Of Alcohol Consumption? Occasional [email or web address] Information not available 12/22/2022 What Was The Date Of Your Most Recent Tobacco Screening? 12/22/2022 [email or web address] Information not available 12/22/2022 Sex: Unknown Functional Status None recorded. Mental Status None recorded. Family History Nothing Reported. Medical History Condition Response CANCER: SPECIFY Y HYPERTENSION Y Past Encounters Encounter ID Performer Location Encounter Start Date Encounter Closed Date Diagnosis/Indication Diagnosis SNOMED-CT Code Diagnosis ICD10 Code Diagnosis Note [id number] Xavier Bran MD [facility] [address] [place] [address] 12/22/2022 09:12:17 12/22/2022 10:13:27 Pain of bilateral hands 0352562414 4186391 M79.643 [id number] Xavier Bran MD [facility] [address] [place] [address] 01/26/2023 14:47:25 01/26/2023 15:13:46 Carpal tunnel syndrome of right wrist 5565065586 55407 G56.01 Postoperative visit 1836 19809 Z09 Acquired t market master finger 5281525 M65.30 Carpal madelin ag syndrome of left wrist 7608065772 71724 G56.02 [id number] Darlene Laboy NP [facility] [address] [place] [address] 03/09/2023 11:16:02 03/09/2023 11:48:41 Carpal tunnel syndrome of left wrist 5188600352 94805 G56.02 [id number] KRISTY Morgan [facility] [address] [place] [address] 03/23/2023 15:15:21 03/23/2023 15:36:22 Carpal tunnel syndrome of left wrist 5779045247 23410 G56.02 Carpal madelin ag syndrome of right wrist 5514406864 98446 G56.01 [id number] Darlene Laboy NP [facility] [address] [place] [address] 04/20/2023 15:01:07 04/20/2023 15:22:32 Pain of bilateral hands 5947018647 2964517 M79.643 Carpal madelin ag syndrome of left wrist 1367016691 79058 G56.02 Carpal madelin ag syndrome of right wrist 7906689801 35552 G56.01 [id number] Darlene LaboyKAITY [facility] [address] [place] [address] 06/08/2023 15:01:56 06/08/2023 16:09:24 Pain of bilateral hands 3703568465 6372702 M79.643 Carpal madelin ag syndrome of left wrist 1195784379 02192 G56.02 Carpal madelin ag syndrome of right wrist 6158949429 28416 G56.01 Acquired t market master finger 4680820 M65.30 Health Concerns Section Related Observation LastModified by Organization Detai ls LastModified Time None Recorded Concern Status LastModified by Organization Details LastModified Time None Recorded Advance Directives Directive None Recorded Payers Encounter Date Sequence Insurance Name Policy Number Policy Caro Covered Member ID Caro Member ID Guarantor Name 01/26/2023 1 [facility] [id number] Xavier Mckay [id number] Xavier Mckay 03/09/2023 1 [facility] [id number] Xavier Mckay [id number] Xavier Mckay 03/23/2023 1 [facility] [id number] Xavier Mckay [id number] Xavier Mckay 04/20/2023 1 [facility] [id number] Xavier Mckay [id number] Xavier Mckay 06/08/[address] [place] [address] [id number] Xavier Mckay [id number] Xavier Mckay Notes Date Note Type Note Provider Name and Address Organization Details Recorded Time 03/23/2023 text/html 53-year-old male approximately 2 months status post right carpal tunnel release performed on 01/11/2023 and 3 weeks status post left carpal tunnel release with middle and ring finger trigger finger release performed on 03/01/2023. patient is doing well today his pain has been well controlled. He states that he continues to have improvement in the numbness and tingling in his fingertips. He does continue to have some swelling over the left carpal tunnel. He denies any recurrence of his triggering. KRISTY Morgan [address] [facility], [facility] [address], [place], [address], [place] [facility] 03/24/2023 12:58:12
== END 2024-07-19 08:15 | disposition home or self-care (01) ==
LOC: ANHGOSHLAB 08:15
PROVIDERS: PCP Family Medicine; Visit Provider Family Medicine
DX: Z00.00 Encounter for general adult medical examination without abnormal findings (principal); I10 Essential (primary) hypertension; E53.8 Deficiency of other specified B group vitamins; E55.9 Vitamin D deficiency, unspecified; Z12.5 Encounter for screening for malignant neoplasm of prostate; R73.9 Hyperglycemia, unspecified; E78.5 Hyperlipidemia, unspecified
CPT/HCPCS: 36415; 80053; 80061; 82306; 82607; 83036; 84153; 84443; 85025; G0103

== ENCOUNTER 2025-01-10 10:20 | Outpatient (CLI) | payer OTHER, SELFPAY ==
[2025-01-10 19:13] LABS: Alanine Aminotransferase 32 U/L (6-50); Albumin Level 4.5 g/dL (3.5-5.1); Alkaline Phosphatase 58 U/L (38-126); Anion Gap 8 mmol/L (4-12); Aspartate Amino Transferase 40 U/L (17-59); Bilirubin,Total 1.0 mg/dL (0.2-1.3); Blood Urea Nitrogen 14 mg/dL (9-20); Calcium 9.6 mg/dL (8.4-10.2); Carbon Dioxide 28 mmol/L (22-30); Chloride 104 mmol/L (98-107); Cholesterol 132 mg/dL (0-200); Estimated Glomerular Filt Rate > 60; Glucose 94 mg/dL (65-110); HDL Direct 36 mg/dL; Potassium 4.2 mmol/L (3.4-5.0); Sodium 140 mmol/L (137-145); Total Protein 7.6 g/dL (6.3-8.2); Triglycerides 76 mg/dL (<150)
== END 2025-01-10 10:21 | disposition home or self-care (01) ==
LOC: ANHGOSHLAB 10:20
PROVIDERS: PCP Family Medicine; Visit Provider Family Medicine
DX: E78.5 Hyperlipidemia, unspecified (principal); I10 Essential (primary) hypertension
CPT/HCPCS: 36415; 80053; 80061

== ENCOUNTER 2025-01-24 08:26 | Outpatient (CLI) | payer OTHER, SELFPAY ==
--- NOTE | ~2025-01-24 | CT_ITS ---
EXAMINATION: CT sinus wo con DATE: 01/24/2025 08:45 INDICATION: Chronic maxillary sinusitis TECHNIQUE: Computed tomography (CT) of the paranasal sinuses was performed without intravenous contra st. The dose-length product was 411.72 mGy-cm. Automated exposure control and iterative reconstructio n technique were employed. COMPARISON: None FINDINGS: There is mucosal thickening of the left maxillary, ethmoid, sphenoid and frontal sinuses. T here is distraction of the left ostiomeatal unit. No significant mucoperiosteal reaction. Mastoids ar e pneumatized. No significant nasal septal deviation. IMPRESSION: 1. Severe left-sided sinusitis Reviewed, dictated and finalized at location A.
== END 2025-01-24 08:27 | disposition home or self-care (01) ==
PROVIDERS: PCP Otolaryngology; Visit Provider Otolaryngology
DX: J32.0 Chronic maxillary sinusitis (principal); J34.2 Deviated nasal septum; J34.3 Hypertrophy of nasal turbinates
CPT/HCPCS: 70486

== ENCOUNTER 2025-03-07 09:46 | Outpatient (CLI) | payer OTHER, SELFPAY ==
--- NOTE | 2025-03-07 09:52 | ECG_ITS ---
Test Date: 2025-03-07 10:04:27 Measurements Intervals [place] Rate: 58 P: -6 DC: 167 QRS: 33 QRSD: 97 T: 2 QT: 386 QTc: 380 Interpretive Statements SINUS BRADYCARDIA No previous ECG available for comparison Electronically Signed On 03-07-2025 11:27:30 CDT by Khoa Daniels M.D.
== END 2025-03-07 09:47 | disposition home or self-care (01) ==
PROVIDERS: PCP Family Medicine; Visit Provider Anesthesiology
DX: Z01.818 Encounter for other preprocedural examination (principal); E78.5 Hyperlipidemia, unspecified; I10 Essential (primary) hypertension
CPT/HCPCS: 93005

== ENCOUNTER 2025-03-12 05:51 | Day surgery (SDC) | payer OTHER, SELFPAY ==
[2025-02-04 12:04] VITALS: BMI 36.9
[2025-03-06 09:31] VITALS: BMI 36.8
--- NOTE | 2025-03-10 13:17 | PM.IMHP ---
H&P: HPI History of Present Illness Date/Time: 03/10/25 13:17 Chief Complaint: Chronic sinusitis septal deviation edge odontogenic sinusitis Narrative: planned surgical procedure Review of Systems Review of Systems: All systems reviewed & are unremarkable except as noted in HPI and below [facility] Past Medical History Medical History Bilateral carpal tunnel syndrome Morbid obesity with BMI of 45.0-49.9, adult Actinic keratosis Vitamin B12 deficiency Vitamin D deficiency Dyslipidemia Essential (primary) hypertension Kidney stones Surgical History Surgical History History of Achilles tendon repair (~2007) Left History of Mohs micrographic surgery for skin cancer x2 - face(09/16) and back(11/16) Status post trigger finger release (~02/2023) Left 3rd and 4th fingers History of carpal tunnel surgery of right wrist (~12/2022) History of carpal tunnel surgery of left wrist (~02/2023) H/O thumb surgery (~1986) left thumb due trauma. Social History Social History Smoking status: Never smoker Second hand tobacco smoke exposure: Yes Alcohol intake: current Alcohol use details: 1 drink per month Substance use: never Substance use type: does not use Lack of Transportation: No Lack of Food: Never True Current Housing: I Have Housing Concerned About Future Housing: No Difficulty Paying Gas/Electric Bills: No Difficulty Paying for Meds: No Currently Unemployed: No Education: Bachelor's Degree Difficulty w/ Childcare or Family Care: No Living arrangements: with family Additional living arrangements comments: Occupation/Education: occupation Additional occupation/education comments: [employer] Gender identity (if verbalized by the patient): Male Sexual Orientation (if Verbalized by the Patient): Straight or Heterosexual Spiritual care concerns: No Meds Home Medications and Allergies Home Medications ?Medication ?Instructions ?Recorded ?Confirmed ?Type cholecalciferol (vitamin D3) 50 50 mcg PO DAILY #90 tabs 06/03/22 03/06/25 Rx mcg (2,000 unit) tablet metoprolol succinate 25 mg 25 mg PO DAILY #90 tabs 07/09/24 03/06/25 Rx tablet,extended release 24 hr hydrochlorothiazide 25 mg tablet 25 mg PO DAILY #90 tabs 10/03/24 03/06/25 Rx cyanocobalamin (vitamin B-12) 1,000 mcg sublingual .QOD 01/10/25 03/06/25 History 1,000 mcg sublingual tablet amlodipine 10 mg tablet 10 mg PO DAILY #90 tabs 02/07/25 03/06/25 Rx atorvastatin 20 mg tablet (Lipitor) 20 mg PO QHS #90 tabs 02/27/25 03/06/25 Rx pseudoephedrine-ibuprofen 30 1 tablet PO Q4-6H PRN cold symptoms 03/06/25 03/06/25 History mg-200 mg tablet (Advil Cold and Sinus) doxycycline hyclate 100 mg capsule 100 mg PO BID #14 caps 03/07/25 Rx Allergies Allergy/AdvReac Type Severity Reaction Status Date / Time No Known Allergies Allergy Verified 03/06/25 09:31 Exam Narrative: chronic appearing sinuses septal deviation Assessment and Plan Assessment and plan (1) Nasal septal deviation: Code(s): J34.2 - Deviated nasal septum Status: Acute Assessment and Plan: plan OR left-sided maxillary antrostomy tissue removal, total ethmoidectomy, frontal sinusotomy, sphenoidotomy, possible middle turbinectomy, possible septoplasty, all image guided all endoscopic. Anesthesia general. Total operative time between 2 and 3 hours. Risks were discussed bleeding infection damage to any structures need further procedures change in taste change in swallow damage to structure the proximal self damage to any structure induction and or a maintenance of anesthesia including vocal cord paralysis. CSF leak brain brain damage septal perforation change in vision total blindness need for further procedures failure to resolve infection. Patient voiced understanding of these risks and agreed (2) Chronic sinusitis: Code(s): J32.9 - Chronic sinusitis, unspecified Status: Acute
[2025-03-12] VITALS (10 sets, daily range): BP systolic 87–138; BP diastolic 33–90; PULSE 69–83; RESP 14–18; TEMP 36.5–36.7; O2SAT 96–100; BMI 36.2
--- NOTE | 2025-03-12 07:24 | WPDHPUPDATE1 ---
History and Physical Update Update Date/Time: 03/12/25 07:24 History and Physical has been reviewed, including an updated exam of the patient. There are NO changes in the patient's condition. Risks, benefits, and alternatives have been discussed and questions answered. Patient agrees to proceed with procedure.
--- NOTE | 2025-03-12 07:25 | P.PNAN_ITS ---
Anes - Initial Pre Proc Eval Procedure: Operation Date: 03/12/25 07:30 Proposed Procedures p Endoscopic Image Guided Left Maxillary Antrostomy with Tissue Removal - Sundeep Porter MD s Endoscopic Image Guided Left Frontal Sinusotomy, Total Ethmoidectomy and Sphenoidotomy - Sundeep Porter MD s Possible Endoscopic Image Guided Left Middle Turbinectomy - Sundeep Porter MD s Possible Endoscopic Image Guided Septoplasty - Sundeep Porter MD Date/Time: 03/12/25 07:25 Surgeon: Sundeep Porter MD Pre Op Diagnosis: Chronic Sinusitis, Turbinate Hypertrophy Patient Data Age: 55 Gender: M Height: 1.73 m Weight: 108.2 kg Last Vital Signs Temp 98.0 F 03/12/25 06:31 Pulse 69 03/12/25 06:31 Resp 16 03/12/25 06:31 BP 138/90 03/12/25 06:31 Pulse Ox 98 03/12/25 06:31 O2 Del Method Room Air 03/12/25 06:31 Allergies Allergy/AdvReac Type Severity Reaction Status Date / Time No Known Allergies Allergy Verified 03/12/25 06:20 Home Medications ?Medication ?Instructions ?Recorded ?Confirmed ?Type cholecalciferol (vitamin D3) 50 50 mcg PO DAILY #90 ta bs 06/03/22 03/12/25 Rx mcg (2,000 unit) tablet metoprolol succinate 25 mg 25 mg PO DAILY #90 tabs 03/12/25 Rx tablet,extended release 24 hr hydrochlorothiazide 25 mg tablet 25 mg PO DAILY #90 ta bs 10/03/24 03/12/25 Rx cyanocobalamin (vitamin B-12) 1,000 mcg sublingual .QO D 01/10/25 03/12/25 History 1,000 mcg sublingual tablet amlodipine 10 mg tablet 10 mg PO DAILY #90 tabs 01/2503/12/25 Rx atorvastatin 20 mg tablet (Lipitor) 20 mg PO QHS #90 t abs 02/27/25 03/12/25 Rx pseudoephedrine-ibuprofen 30 1 tablet PO Q4-6H PRN col d symptoms 03/06/25 03/12/25 History mg-200 mg tablet (Advil Cold and Sinus) doxycycline hyclate 100 mg capsule 100 mg PO BID #14 c aps 03/07/25 03/12/25 Rx ECG: SB Patient hx anesthesia problems: none Family hx anesthesia problems: none Results Review: All pre-operative results and documents have been reviewed as part of the pre- operative evaluation. [facility] Past Medical History Medical History Bilateral carpal tunnel syndrome Morbid obesity with BMI of 45.0-49.9, adult Actinic keratosis Vitamin B12 deficiency Vitamin D deficiency Dyslipidemia Essential (primary) hypertension Kidney stones Surgical History Surgical History History of Achilles tendon repair (~2007) Left History of Mohs micrographic surgery for skin cancer x2 - face(09/16) and back(11/16) Status post trigger finger release (~02/2023) Left 3rd and 4th fingers History of carpal tunnel surgery of right wrist (~12/2022) History of carpal tunnel surgery of left wrist (~02/2023) H/O thumb surgery (~1986) left thumb due trauma. Social History Social History Smoking status: Never smoker Second hand tobacco smoke exposure: Yes Alcohol intake: current Alcohol use details: 1 drink per month Substance use: never Substance use type: does not use Lack of Transportation: No Lack of Food: Never True Current Housing: I Have Housing Concerned About Future Housing: No Difficulty Paying Gas/Electric Bills: No Difficulty Paying for Meds: No Currently Unemployed: No Education: Bachelor's Degree Difficulty w/ Childcare or Family Care: No Living arrangements: with family Additional living arrangements comments: Occupation/Education: occupation Additional occupation/education comments: [employer] Gender identity (if verbalized by the patient): Male Sexual Orientation (if Verbalized by the Patient): Straight or Heterosexual Spiritual care concerns: No Anes - Eval Final PreProcedure Day of Procedure 03/12/25 07:25 Heart: regular rate and rhythm Lungs: clear to auscultation Airway: Mallampati scale class IV and special considerations large neck, large tongue and poor opening Neurological: alert and oriented Last oral intake: >/= 8 hours ASA classification: III Anesthetic plan: proceed Anesthesia type and monitoring: general Results Review: All pre-operative results and documents have been reviewed as part of the pre- operative evaluation. Informed Consent: The patient's anesthetic plan and its attendant risks and benefits were discussed with the patient/family/POA. Questions were solicited and answers provided to the satisfaction of the patient/family/POA.
[2025-03-12] MEDS: LACTATED RINGERS 1,000 ML 30 ML IV CONT ×2 (08:02→11:04)
[2025-03-12] MEDS: ceFAZolin 2 GM in SODIUM CHLORIDE 0.9% IV 50 ML 100 ML IVPB (08:25)
[2025-03-12] MEDS: LIDO 1%/EPINEPHRINE 1:100,000 20 ML VIAL INFILTRATE (09:32)
[2025-03-12] MEDS: NACL 0.9% IRRIGATION POUR BOTTL 1,000 ML 1000 ML IRRIGATION (09:39)
[2025-03-12] MEDS: MUPIROCIN 2% OINT 22 GM TUBE 1 APPLIC TOPICAL (10:46)
[2025-03-12] MEDS: OXYMETAZOLINE HCL 0.05% NAS 15 ML BTL (*BKC) 1 SPRAY XX (10:57)
--- NOTE | 2025-03-12 11:19 | P.OP_ITS ---
Procedure Note - Detailed Date of Procedure 03/12/25 Pre-op Diagnosis Chronic Sinusitis, septal deviation, acute sinusitis Post-op Diagnosis Same Procedure Performed 1. Endoscopic assisted septoplasty 2. Left-sided image guided endoscopic maxillary antrostomy 3. Left-sided image guided endoscopic total ethmoidectomy 4. Left-sided image guided endoscopic sphenoidotomy 5. Left-sided image guided endoscopic frontal sinusotomy with propel stent placement Surgeon Sundeep Porter MD Anesthesia General Indications See above Findings Copious amounts of purulence bleeding inflamed tissue in all the aforementioned sinuses. No obvious complications. I was able to get all the disease sinuses Description of Procedure Patient identified consent verified the preop holding area. Patient brought operating. Time-out performed. General anesthesia induced endotracheal tube secured. Patient prepped draped position procedure confirmed 2nd time-out performed. Image guidance initiated confirmed. 0 degree endoscope used left- sided viewed septal deviation blocking the the sinuses. Total 15 cc 1% lidocaine 1-1 100,000 parts epinephrine checked in the bilateral nasal septum. Left-sided [place] incision made left nasal septal flap elevated 7 Vietnamese suction. Osteotome utilized to cross over right nasal septal flap pelvis 7 Vietnamese suction. Deviated septum removed with Rand forceps Elias Woodward forceps and osteotome. Septal flaps irrigated out closed anteriorly with 2 interrupted 5 0 fast gut suture. Approximated perfectly. Left maxillary antrostomy which actually was with tissue removal performed with image guidance, double ball tip probe, image guided microdebrider, backbiter, straight through cut. Bleeding was controlled with warm water irrigations infuse a tobramycin as well as with Afrin-soaked pledgets. Total ethmoidectomy performed with straight through cut [place] image guided microdebrider and image guidance. Great care was taken to not injure skull base or orbit. Sphenoidotomy performed with image guidance sphenoid punch [place]ison microdebrider. Frontal sinusotomy performed with image guidance image guided suction Hosemann draft instruments Chon. After the procedure was done a propel stent was placed in the frontal sinus. Nova pack was placed in the left side. Again the prior to all this to the was copiously irrigated irrigated out the L of sterile normal saline infused with tobramycin. Cultures were also taken prior any sinus surgery. Hollis splints were placed bilaterally ensured to be lateral to the middle turbinate on the left. The Hollis splints were sutured anteriorly using 3-0 mattress nylon suture. Care the patient back to Anesthesiology. I performed all dictated portions of procedure. No complications. Patient taken to PACU. Blood loss 60 cc Estimated Blood Loss 60 Drains No Packing Yes (Melvi) Pathology None sent Complications No immediate complications Disposition PACU [facility] Billing Surgery - Charge Forward: Surgery Billing
[2025-03-12] MEDS: oxyCODONE HCL (*CRX) 5 MG TAB IR PO (12:23)
--- NOTE | 2025-03-12 12:46 | SUR.PHASEII ---
1230; PT GIVEN OXYCODONE 5MG PO, THEN VOMITED BLOODY EMESIS A FEW MINUTES LATER. BLOODY EMESIS MIXED WITH WHITE SODA AND CRACKERS.
== END 2025-03-12 13:23 | disposition home or self-care (01) ==
PROVIDERS: PCP Family Medicine; Visit Provider Otolaryngology
PROC: (CPT 31256; principal; 2025-03-12 07:30)
PROC: (CPT 31256; 2025-03-12 07:30)
PROC: (CPT 30520; 2025-03-12 07:30)
DX: J32.9 Chronic sinusitis, unspecified (principal); J34.2 Deviated nasal septum
CPT/HCPCS: 31256; 31257; 31276; 61782; 30520

== ENCOUNTER 2025-03-12 11:55 | Outpatient (NON) | payer OTHER, SELFPAY | END 2025-03-12 11:56 | disposition home or self-care (01) | PROVIDERS: PCP Family Medicine; Visit Provider Otolaryngology | DX: J32.9 Chronic sinusitis, unspecified (principal) | CPT/HCPCS: 87070; 87147; 87186; 87205 ==